=== PATIENT | male | born 1980 | race Hispanic/Latino ===

== ENCOUNTER → 2018-11-09 09:31 | Outpatient (CLI) | payer OTHER, SELFPAY ==
--- NOTE | 2018-11-09 09:40 | STEWCON_ITS ---
Reason For Study: Valvular Heart Disease Stress Results Protocol: Bon Protocol Maximum Predicted HR: 182 bpm Target HR: 155 bpm % Maximum Predicted HR: 89 % DurationHeart Rate Stage (mm:ss) (bpm) BP Comment Baseline 72 146/70No Chest Pain; 5 ML Diluted Definity Used Bon Protocol Stage I 3:00 111 138/72No Chest Pain Bon Protocol Stage II 3:00 130 156/72No Chest Pain; Mild Dyspnea Bon Protocol Stage III 3:00 162 150/68No Chest Pain; Moderate Dyspnea Recovery 99 130/68No Chest Pain Stress Duration: 9:00 mm:ss Maximum Stress HR: 162 bpm METS: 10 Baseline Echocardiogram Findings Stress Echo Wall motion Data Resting WM Intermediate WM Stress WM Resting Wall Motion Wall Motion Stress All segments Normal. All segments Hyperkinetic. Ejection Fraction 55 %. Ejection Fraction 70 %. Stress Results Heart rate response: Appropriate Blood pressure response to exercise: Resting hypertension-appropriate response Arrhythmias: None Functional capacity: Good Stopped secondary to: Dyspnea/leg discomfort. EKG Data The baseline ECG displays normal sinus rhythm. Peak exercise ECG: No Obvious ECG Changes. Symptoms with Stress No complaint of chest discomfort during exercise or recovery. MMode/2D Measurements & Calculations LVOT diam: 2.1 cm Ao root diam: 3.1 cm LVOT area: 3.4 cm2 Doppler Measurements & Calculations Ao V2 max: 362.9 cm/sec AI max kristy: 487.4 cm/sec LV V1 max: 109.2 cm/sec Ao max P.7 mmHg AI max P.1 mmHg LV V1 max P.8 mmHg Ao V2 mean: 264.1 cm/sec AI dec slope: 261.5 cm/sec2 LV V1 mean P.7 mmHg Ao mean P.8 mmHg AI P1/2t: 546.0 msec LV V1 mean: 79.2 cm/sec Ao V2 VTI: 85.2 cm LV V1 VTI: 26.6 cm JOEL(I,D): 1.1 cm2 JOEL(V,D): 1.0 cm2 SV(LVOT): 90.4 ml TR max kristy: 193.9 cm/sec TR max P.0 mmHg Interpretation Summary Negative (Adequate) Stress Echocardiogram Aortic valve: Moderate/borderline severe aortic valve stenosis Estimated RV systolic pressure: Approximately 18 mmHg Ordering Physician: Hari Bliss Referring Physician: William Hughes Performed By: Andreina Sotelo, RDCS, RVT
== END ==
PROVIDERS: Family Provider Family Medicine; PCP Family Medicine
DX: I38 Endocarditis, valve unspecified (principal)
CPT/HCPCS: 93017; 93350; Q9957; A4216; C8928

== ENCOUNTER 2021-01-10 20:58 | Inpatient (IN) | payer OTHER, SELFPAY ==
[2021-01-10] VITALS (9 sets, daily range): BP systolic 146–179; BP diastolic 76–102; PULSE 73–85; RESP 18–22; TEMP 35.9–36.6; O2SAT 95–97; BMI 48.4
--- NOTE | 2021-01-10 21:02 | EKG12_ITS ---
Test Reason : STROKE TEAM Blood Pressure : / mmHG Vent. Rate : 078 BPM Atrial Rate : 078 BPM P-R Int : 196 ms QRS Dur : 108 ms QT Int : 386 ms P-R-T Axes : 036 025 026 degrees QTc Int : 440 ms Normal sinus rhythm Normal ECG Confirmed by KRISTA LENZ, MARITZA ([id number]), supervising editor news reel RYLIE SCHMIDT ([id number]) on 01/14/2021 8:03:49 AM Referred By: MICHAEL Confirmed By:MARITZA VELASCO MD
--- NOTE | 2021-01-10 21:02 | CT_ITS ---
We are attempting to reach an attending provider to discuss findings. An addendum with communication details will be sent when the communication is complete. STUDY: CT BRAIN WITHOUT CONTRAST REASON FOR EXAM: Male, 40 years old. Neuro deficit, acute, stroke suspected TECHNIQUE: Transaxial CT imaging of the brain was performed without administration of intravenous contrast material. Individualized dose optimization techniques were used for this CT. COMPARISON: None. FINDINGS: Normal soft tissues. Normal calvarium. Normal size ventricles and extra-axial spaces for the patient''s age. Normal white matter tracts of the cerebral hemispheres. Normal basal ganglia and thalami. Normal brainstem. Normal cerebellum. There is no intracranial hemorrhage. There are no findings of an acute ischemic infarction. Normal visualized paranasal sinuses. ASPECTS 10 CT/STROKE Brain/Head without Cont IMPRESSION: There are no acute intracranial findings. Electronically Signed: Gavin Jackson MD at 21:17 EDT , Service support ,
--- NOTE | 2021-01-10 21:02 | RAD_ITS ---
STUDY: X-RAY CHEST REASON FOR EXAM: Male, 40 years old. Neuro deficit, acute, stroke suspected TECHNIQUE: Single AP portable view of the chest. COMPARISON: None. FINDINGS: The lungs are clear and expanded. There is no demonstrated pleural abnormality. Sternal cerclage wires are present from a prior sternotomy. Mild cardiomegaly. Normal mediastinum and carroll. Normal visualized pulmonary arteries. Normal visualized aortic arch and descending thoracic aorta. Normal visualized thoracic spine. Normal visualized ribs, clavicles, and shoulders. There is no demonstrated abnormality of the visualized soft tissue structures of the upper abdomen. RAD/Chest 1 View IMPRESSION: Normal x-ray examination of the chest. Electronically Signed: Matheus Bruce DO at 22:22 EDT Tel , Service support ,
[2021-01-10 21:18] LABS: Absolute Lymphocyte Count 2.85 X10^3/uL (0.83-4.51); Absolute Neutrophil Count 9.4 X10^3/uL (2.0-7.7); Basophil# 0.07 X10^3/uL; Basophil% 0.5 % (0-1); Eosinophil# 0.32 X10^3/uL; Eosinophils% 2.3 % (0-5); Hematocrit 48.5 % (40-54); Hemoglobin 16.3 g/dL (13.0-16.5); Lymphocyte # 2.85 X10^3/ul (0.83-4.51); Lymphocyte % 20.7 % (19-41); Mean Corp Hgb Conc 33.6 g/dL (32-36); Mean Corpuscular Hgb 29.1 pg (27.0-32.0); Mean Corpuscular Volume 86.5 fL (80-94); Mean Platelet Vol. 9.2 fl (6.2-12.0); Monocyte# 1.04 X10^3/uL; Monocyte% 7.6 % (0-10); NRBC Flagged by Analyzer 0 % (0-5); Neutrophil # 9.41 X10^3/uL (2.7-7.7); Neutrophil % 68.5 % (47-70); Platelet Count 191 K/mm3 (150-450); RBC Distribution Width CV 13.5 % (11.6-14.6); RBC Distribution Width SD 42.8 fl (35.1-43.9); Red Blood Count 5.61 M/mm3 (4.6-6.2); White Blood Count 13.8 K/mm3 (4.4-11.0)
--- NOTE | 2021-01-10 21:28 | EX.ED.DYSGE1 ---
HPI History of Present Illness Chief Complaint: Neuro S/Sx Informant: patient, spouse/S.O. and EMS Narrative Narrative: Patient presents via EMS as a prehospital stroke team. Patient was last seen normal at approximately 1900 hrs. He states that he was in his garage working on a car when he finished went up to the house sat outside began playing with his dog. He states that he began to feel strange and noticed that he did not really notice that it was his right arm that was moving. States that the right arm and right leg began to be insensate and weak. His found him and he was having difficulty speaking. EMS was called and he was transported here. Since arriving here he states that his arm and his leg are feeling better and his speech is getting better. He was taken directly from EMS cot to the CT scanner. Patient has had a history of having an aortic valve repair/replacement at [facility] in June. He does take aspirin. [facility] Medical History (Updated 01/10/21 @ 22:[address] Eagle Whittaker DO) Hyperlipidemia Hypertension Home Medications aspirin 81 mg PO DAILY 01/10/21 [History Last Taken Unknown] atorvastatin 80 mg PO DAILY 01/10/21 [History Last Taken Unknown] metoprolol succinate 100 mg PO DAILY 01/10/21 [History Last Taken Unknown] Allergy/AdvReac Type Severity Reaction Status Date / Time No Known Allergies Allergy Verified 01/10/21 21:37 Surgical History H/O aortic valve repair Social History (Updated 01/10/21 @ 21:[address] Eagle Whittaker DO) Smoking Status: Never smoker substance use type: does not use ROS ROS ED Constitutional Constitutional ED: Denies chills or weight loss Eyes Eyes: Denies change in vision or diplopia ENT ENT ED: Denies ear pain, rhinorrhea or sore throat Cardiovascular Cardiovascular: Denies chest pain, orthopnea, palpitations or racing heartbeat Respiratory/Chest Respiratory/Chest: Denies cough, dyspnea or orthopnea Gastrointestinal Gastrointestinal: Denies abdominal pain, diarrhea, nausea or vomiting Genitourinary Genitourinary ED: Denies dysuria, hematuria or urinary frequency Musculoskeletal Musculoskeletal: Denies arthralgias or myalgias Integumentary Denies abscess or rash Neurologic Neurologic: Reports paresthesias, weakness and other Details: Dysarthria ; Denies headache(s) Psychiatric Psychiatric: Denies anxiety, depression, suicidal ideation or suicidal thoughts Endocrine Endocrinology: Denies polydipsia, polyphagia or polyuria Allergic/Immunologic Allergic/Immunologic ED: Denies mouth swelling, tongue swelling or urticaria EXAM Physical Exam Const Vital Signs: 01/10/21 21:02 01/10/21 21:07 01/10/21 21:32 Temperature 97.8 F Temperature Source Temporal Pulse Rate 85 83 84 Respiratory Rate 22 H 18 18 Blood Pressure 175/93 H 175/93 H 170/81 H Blood Pressure Mean 120 120 110 Pulse Ox 96 97 95 Oxygen Delivery Method Room Air Room Air Room Air Positive well nourished and well developed General Appearance ED: well developed HEENT Reports normocephalic, head/scalp atraumatic and moist mucous membranes Eyes PERRL and EOMs intact bilaterally Neck no lymphadenopathy, supple and no JVD Resp normal respiratory effort and clear to auscultation bilaterally Cardio regular rate, regular rhythm and no murmurs GI normal to inspection, nondistended, normoactive bowel sounds and non-tender Palpation: soft Back/Spine no CVA tenderness and normal ROM Extremity normal to inspection General Extremety ED: Negative for edema General Extremity: Negative for edema Neuro oriented x3 and CN's II-XII intact bilaterally Neuro Narrative: Patient scores an NIH of 1 for decreased sensation of the right arm and right leg. Sensorium / Orientation: alert Motor Exam: strength 5/5 throughout Psych mental status grossly normal Mood & Affect: Negative for depressed or tearful Skin no rashes or lesions noted and no wounds MDM MDM MDM Narrative Medical decision making narrative: As discussed above prehospital stroke team was called. Taken directly to the CT scanner noncontrasted head CT was negative. Patient was interviewed by neurology with his NIH of 1 and improvement of symptoms he is not a TPA candidate. Basic blood work showed a white count 13.8. Troponin is 25. BMP is negative. Carboxyhemoglobin is 1.7. This was obtained as the patient was working in his garage. Later we learned that he was not using any devices that would admit CO. My interpretation of the chest x-ray is cardiomegaly but otherwise no acute process. CTA of the head and neck will be obtained as long as there is no obvious occlusion plan will be to admit the patient. Lab Data Attestation: I reviewed the patient's lab results. Labs: Laboratory Results - last 24 hr 01/10/21 01/10/21 01/10/21 21:03 21:03 21:03 WBC 13.8 H RBC 5.61 Hgb 16.3 Hct 48.5 MCV 86.5 MCH 29.1 MCHC 33.6 RDW Std Deviation 42.8 RDW Coeff of Arnel 13.5 Plt Count 191 MPV 9.2 Immature Gran % (Auto) 0.400 Neut % (Auto) 68.5 Lymph % (Auto) 20.7 Surry % (Auto) 7.6 Eos % (Auto) 2.3 Baso % (Auto) 0.5 Absolute Neuts (auto) 9.4 H Absolute Lymphs (auto) 2.85 Nucleated RBC % 0 PT 12.5 INR 1.0 APTT 32.0 Sodium 138 Potassium 3.5 Chloride 102 Carbon Dioxide 30.0 Anion Gap 6 BUN 17 Creatinine 0.95 Estim Creat Clear Calc 100.00 Est GFR (MDRD) Af Amer 113 Est GFR (MDRD) Non-Af 94 BUN/Creatinine Ratio 18.0 Glucose 113 H Calcium 9.5 Troponin I High Sens 25 ABG Data ABG results: ABG 01/10/21 21:58 VBG Carboxyhemoglobin 1.7 H Radiography Diagnostic Testing: Radiology Impression Brain CT 01/10/21 21:02 IMPRESSION: There are no acute intracranial findings. Electronically Signed: Gavin Jackson MD at 21:17 EDT , Service support , ADDENDUM: 01/10/212124 IMPRESSION: There are no acute intracranial findings. N.B. : The above Results were Read Back by Gavin Jackson MD to Dr. Eagle Whittaker MD, and understanding confirmed on 01/10/2021 21:18:16 (ET). Electronically Signed: Gavin Jackson MD at 21:17 EDT , Service support , Chest X-Ray 01/10/21 21:02 IMPRESSION: Normal x-ray examination of the chest. Electronically Signed: Matheus Bruce DO at 22:22 EDT Tel , Service support , Head/Neck CTA 01/10/21 22:18 IMPRESSION: Normal CTA Head and neck with contrast. N.B. : The above Results were Read Back by Matheus Bruce DO to Eagle Whittaker MD, and understanding confirmed on 01/10/2021 22:39:57 (ET). Electronically Signed: Matheus Bruce DO at 22:40 EDT Tel , Service support , EKG Initial EKG: Attestation: I personally reviewed and interpreted this EKG as follows: Comments: Sinus rhythm with a ventricular rate of 78 bpm Discharge Plan Dx/Rx/DC Orders Clinical Impression: Stroke Disposition Disposition: Acute Care [facility]
[2021-01-10 21:37] LABS: Anion Gap 6 (5-15); BUN 17 mg/dL (7-18); Calcium,Total 9.5 mg/dL (8.5-10.1); Chloride 102 mmol/L (98-107); Creatinine, Serum 0.95 mg/dL (0.70-1.30); EST Glomerular Filtration Rate 94 mL/min (>60); Est Glom Filt Rate - Afr Amer 113 mL/min (>60); Glucose 113 mg/dL (74-106); Potassium 3.5 mmol/L (3.5-5.1); Sodium Level 138 mmol/L (136-145); Troponin-I HS 25 pg/mL (3.0-78.0)
[2021-01-10 21:41] LABS: Prothrombin Time (Protime)PT. 12.5 SECONDS (11.7-14.9)
[2021-01-10] MEDS: 0.9% Normal Saline 1,000 ML 999 ML IV (21:44)
--- NOTE | 2021-01-10 22:18 | CT_ITS ---
STUDY: CTA HEAD AND NECK WITH CONTRAST REASON FOR EXAM: Male, 40 years old. STROKE RADIATION DOSAGE (If Supplied By Facility): CTDIvol = ( 20.78 ) mGy, DLP = ( 831.04 ) mGycm TECHNIQUE: CT angiography was performed with a multi-detector CT scanner. Data acquisition was obtained from the skull base through the vertex following intravenous administration of . MIP images were reconstructed from the axial data set. Post-processing of the angiographic images was performed, with multiplanar reformation and 3D reconstruction. Individualized dose optimization techniques were used for this CT. COMPARISON: No relevant priors. FINDINGS: Normal bilateral petrous carotid arteries. Normal right cavernous carotid artery with a normal supraclinoid bifurcation. Normal left cavernous carotid artery with a normal supraclinoid bifurcation. Normal right A1 segments of the anterior cerebral artery. Normal left A1 segments of the anterior cerebral artery. Normal intact anterior communicating artery (ACOM). Normal bilateral A2 segments of the anterior cerebral arteries. Normal right M1 and M2 segments of the middle cerebral arteries, with a normal M1 bifurcation. Normal left M1 and M2 segments of the middle cerebral arteries, with a normal M1 bifurcation. Normal right posterior communicating artery (PCOM). Normal left posterior communicating artery (PCOM). Normal bilateral vertebral arteries. Normal basilar artery with a normal basilar bifurcation. The visualized bilateral superior cerebellar (SCA) arteries are normal. Normal bilateral P1, P2 and visualized P3 segments of the posterior cerebral arteries. There is no demonstrated aneurysm of the pilot station of Ho. There is no demonstrated abnormality of the visualized brain. AORTIC ARCH: Normal visualized aortic arch. Normal origins of the brachiocephalic, left common carotid, and left subclavian arteries. RIGHT CAROTID ARTERIES: Normal right common carotid artery (CCA). Normal right common carotid bulb. Normal origin of the right internal carotid (ICA) artery without a hemodynamically significant stenosis. Normal visualized cervical portion of the right internal carotid artery. Normal origin of the right external carotid artery (ECA). LEFT CAROTID ARTERIES: Normal left common carotid artery (CCA). Normal left common carotid bulb. Normal origin of the left internal carotid (ICA) artery without a hemodynamically significant stenosis. Normal visualized cervical portion of the left internal carotid artery. Normal origin of the left external carotid artery (ECA). VERTEBRAL ARTERIES: Normal bilateral vertebral arteries. CT/STROKE CTA Head AND Neck W/Con IMPRESSION: Normal CTA Head and neck with contrast. N.B. : The above Results were Read Back by Matheus Brcue DO to Eagle Whittaker MD, and understanding confirmed on 01/10/2021 22:39:57 (ET). Electronically Signed: Matheus Bruce DO at 22:40 EDT Tel , Service support ,
[2021-01-10 22:27] LABS: Carboxyhemoglobin Frac (CO) 1.7 % (0.0-1.5)
[2021-01-10 23:00] LABS: Bacteria 0 SEEN /hpf (None Seen); Mucous, Urine 0 SEEN /hpf (<or=2+); Red Blood Cells-Urine 0 SEEN /hpf (0-5); White Blood Cells 0 SEEN /hpf (0-5)
[2021-01-10 23:03] LABS: Color, Urine Yellow (Yellow); Glucose, Dipstick Normal (Normal); Ketone-Dipstick Negative (Negative); Leukocyte Esterase-Dipstick Negative /ul (Negative); Nitrite-Dipstick Negative (Negative); Occult Blood-Urine Negative /ul (Negative); Protein-Dipstick 30 mg/dl (Negative); Specific Gravity, Urine 1.015 (1.002-1.030); Urine Bilirubin Dipstick Negative (Negative); Urine Clarity Sl. Cloudy (Clear); Urine Urobilinogen 1 mg/dl (Normal)
[2021-01-10 23:10] LABS: Squamous Epithelial Cells - UA 0-5 SEEN /hpf (0-5)
--- NOTE | 2021-01-10 23:21 | PCM.HP.STD ---
Documented by User: RASHMI Loo 01/10/21 23:32 HPI - General General Date of Admission: 01/10/21 Date of Service: 01/10/21 Chief Complaint: Numbness and Tingling HPI Narrative MELCHOR DONOVAN, is a 40 M who presents with complaints of right side numbness. Patient states that he was sitting at home during the ball with his dog in the backyard when he realized that he can no longer feel his right arm or leg. Patient was also noted to have slurred speech by his . Upon arrival to ER slurred speech had resolved however patient continues to have no sensation in her right arm or leg. Patient denies fever, chills, shortness of breath, chest pain, cough, nausea, vomiting. Patient reports that he recently underwent aortic valve replacement at the [facility] in June 2020 however patient does report that his valve is not mechanical and was made from his pericardium. [facility] Medical History Hyperlipidemia Hypertension Home Medications aspirin 81 mg PO DAILY 01/10/21 [History Last Taken Unknown] atorvastatin 80 mg PO DAILY 01/10/21 [History Last Taken Unknown] metoprolol succinate 100 mg PO DAILY 01/10/21 [History Last Taken Unknown] Allergy/AdvReac Type Severity Reaction Status Date / Time No Known Allergies Allergy Verified 01/10/21 21:37 Surgical History H/O aortic valve repair Social History Smoking Status: Never smoker substance use type: does not use ROS Constitutional Constitutional: Denies anorexia, chills, fatigue, malaise or weakness Cardiovascular Cardiovascular: Denies chest pain, edema or palpitations Respiratory/Chest Respiratory/Chest: Denies cough, shortness of breath at rest, shortness of breath with exertion or wheezing Gastrointestinal Gastrointestinal: Denies abdominal pain, constipation, diarrhea, nausea or vomiting Genitourinary Genitourinary: Denies dysuria Musculoskeletal Musculoskeletal: Denies back pain, extremity pain, joint pain or joint stiffness Integumentary Integumentary: Denies dry skin Neurologic Neurologic: Reports abnormal speech and sensory deficit; Denies abnormal gait Psychiatric Psychiatric: Denies anxiety or depression Endocrine Endocrinology: Denies change in body appearance Hematologic/Lymphatic Hematologic/Lymphatic: Denies anemia, easy bleeding or easy bruising Vital Signs Vital Signs Vital Signs: 01/10/21 21:02 01/10/21 21:07 01/10/21 21:32 Temperature 97.8 F Temperature Source Temporal Pulse Rate 85 83 84 Respiratory Rate 22 H 18 18 Blood Pressure 175/93 H 175/93 H 170/81 H Blood Pressure Mean 120 120 110 Pulse Ox 96 97 95 Oxygen Delivery Method Room Air Room Air Room Air 01/10/21 22:00 01/10/21 22:02 01/10/21 22:30 Temperature Temperature Source Pulse Rate 77 77 82 Respiratory Rate 19 H 19 H 18 Blood Pressure 176/85 H 176/85 H 179/102 H Blood Pressure Mean 115 115 127 Pulse Ox 96 96 96 Oxygen Delivery Method Room Air Room Air Room Air Weight Weight: 318 lb 12.8 oz Body Mass Index (BMI) 48.4 Physical Exam Const alert, oriented x3 and no apparent distress General Appearance: cooperative HEENT normocephalic and head/scalp atraumatic Eyes conjunctivae normal and no scleral icterus Neck supple General: trachea midline Resp normal respiratory effort, normal air movement and clear to auscultation bilaterally Cardio regular rate, regular rhythm, S1 normal heart sound, S2 normal heart sound and peripheral pulses 2+ throughout GI normal to inspection, nondistended, normoactive bowel sounds, soft to palpation and non-tender Extremity normal capillary refill and no clubbing, cyanosis or edema General Extremity: no tenderness to palpation of joints or extremities Skin General Skin Exam: no breakdown and turgor normal Lesions: no lesions Rashes: no rashes Neuro oriented x3, moves all extremities and no focal motor deficits Sensory Exam: double simultaneous stimulation for sensation abnormal Positive for right-sided extinction Psych thought process normal, cooperative and affect normal Appearance: appropriate Results Lab / Micro Data Result Diagrams: 01/11/21 03:14 01/11/21 03:14 Labs: Laboratory Results - last 24 hr 01/10/21 21:03: WBC 13.8 H, RBC 5.61, Hgb 16.3, Hct 48.5, MCV 86.5, MCH 29.1, MCHC 33.6, RDW Std Deviation 42.8, RDW Coeff of Arnel 13.5, Plt Count 191, MPV 9.2, Immature Gran % (Auto) 0.400, Neut % (Auto) 68.5, Lymph % (Auto) 20.7, [place] % (Auto) 7.6, Eos % (Auto) 2.3, Baso % (Auto) 0.5, Absolute Neuts (auto) 9.4 H, Absolute Lymphs (auto) 2.85, Nucleated RBC % 0 01/10/21 21:03: PT 12.5, INR 1.0, APTT 32.0 01/10/21 21:03: Sodium 138, Potassium 3.5, Chloride 102, Carbon Dioxide 30.0, Anion Gap 6, BUN 17, Creatinine 0.95, Estim Creat Clear Calc 100.00, Est GFR (MDRD) Af Amer 113, Est GFR (MDRD) Non-Af 94, BUN/Creatinine Ratio 18.0, Glucose 113 H, Calcium 9.5, Troponin I High Sens 25 01/10/21 22:54: Ur Drug Screen Comment 01/10/21 22:54: Urine Color Yellow, Urine Clarity Sl. Cloudy, Urine pH 5.0, Ur Specific [place] 1.015, Urine Protein 30 H, Urine Glucose (UA) Normal, Urine Ketones Negative, Urine Occult Blood Negative, Urine Nitrite Negative, Urine Bilirubin Negative, Urine Urobilinogen 1 H, Ur Leukocyte Esterase Negative, Urine RBC 0 SEEN, Urine WBC 0 SEEN, Ur Squamous Epith Cells 0-5 SEEN, Urine Bacteria 0 SEEN, Urine Mucus 0 SEEN ABG Data ABG results: ABG 01/10/21 21:58 VBG Carboxyhemoglobin 1.7 H Radiology Impression Brain CT 01/10/21 21:02 IMPRESSION: There are no acute intracranial findings. Electronically Signed: Gavin Jackson MD at 21:17 EDT , Service support , ADDENDUM: 01/10/212124 IMPRESSION: There are no acute intracranial findings. N.B. : The above Results were Read Back by Gavin Jackson MD to Dr. Eagle Whittaker MD, and understanding confirmed on 01/10/2021 21:18:16 (ET). Electronically Signed: Gavin Jackson MD at 21:17 EDT , Service support , Chest X-Ray 01/10/21 21:02 IMPRESSION: Normal x-ray examination of the chest. Electronically Signed: Matheus Bruce DO at 22:22 EDT Tel , Service support , Head/Neck CTA 01/10/21 22:18 IMPRESSION: Normal CTA Head and neck with contrast. N.B. : The above Results were Read Back by Matheus Bruce DO to Eagle Whittaker MD, and understanding confirmed on 01/10/2021 22:39:57 (ET). Electronically Signed: Matheus Bruce DO at 22:40 EDT Tel , Service support , ADDENDUM: 01/10/21 2247 IMPRESSION: Normal CTA Head and neck with contrast. N.B. : The above Results were Read Back by Matheus Bruce DO to Eagle Whittaker MD, and understanding confirmed on 01/10/2021 22:39:57 (ET). Electronically Signed: Matheus Bruce DO at 22:40 EDT Tel , Service support , Assessment & Plan Assessment/Plan (1) Stroke: PLAN: 1. Stroke rule out -Admit to PCU for cardiac and pulse ox monitoring -Brain CT and head/neck CTA negative for acute findings -NIH 1 for right-sided inattention -MRI brain scheduled for a.m. -We will obtain echo in a.m. -CBC, BMP, lipid profile for a.m. -PT, ST, OT to eval and treat -Vital signs and NIH every 4 hours per protocol -Oxygen per protocol -Cardiac diet ordered -Trend cardiac enzymes 2. Hypertension -We will allow permissive hypertension for first 24 hours due to #1 -Hold patient's home metoprolol -Vital signs every 4 hours per stroke protocol -As needed labetalol and hydralazine ordered 3. Hyperlipidemia -Continue atorvastatin -Lipid panel ordered for a.m. DVT prophylaxis-subcu Lovenox This patient was seen by RASHMI Loo under the supervision of Dr. Vincent. Documented by User: Dr. Arnel Vincent MD 01/11/21 04:26 HPI - General General Date of Admission: 01/10/21 [facility] Medical History Hyperlipidemia Hypertension Home Medications aspirin 81 mg PO DAILY 01/10/21 [History Last Taken Unknown] atorvastatin 80 mg PO DAILY 01/10/21 [History Last Taken Unknown] metoprolol succinate 100 mg PO DAILY 01/10/21 [History Last Taken Unknown] Allergy/AdvReac Type Severity Reaction Status Date / Time No Known Allergies Allergy Verified 01/10/21 21:37 Surgical History H/O aortic valve repair Social History Smoking Status: Never smoker substance use type: does not use Results Lab / Micro Data Result Diagrams: 01/11/21 03:14 01/11/21 03:14 Charges/Coding Addendum Addendum: Patient was seen and examined independently. 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 Reportedly while patient was playing with his dog he could not feel his right arm. Also he had decreased sensation in his left. Also he had a speech difficulty. Patient was evaluated by telestroke neurologist at the emergency department. NIH scale was assessed as 1. Patient was left from date of TPA. Physical exam: General: Well-nourished, well-developed. Head: Normocephalic, atraumatic, no tenderness Eyes: PERRLA, EOMI ENT, no trauma, moist mucous membranes, no rhinorrhea Neck: Nontender, full range of motion, no spinal tenderness, deformities, step-off CVS: Regular rate and rhythm. S1-S2 present. No murmur, gallop or rub. Respiratory : clear to auscultation bilaterally, chest wall nontender, no wheezing Abdomen: Soft, nontender, nondistended, normal bowel sounds, no masses : Deferred Back: Nontender, no CVA tenderness, no midline spinal tenderness, deformities, step-offs Extremities: Nontender full range of motion, no trauma Skin: Normal color, no trauma, abrasions Neuro: Alert, oriented, cranial nerves II through XII grossly intact. Sensation changes at the right upper extremity and right lower extremity. Patient with mild aphasia. Deep tendon reflexes 2+ out of 4 throughout. No dysmetria. Psychiatry: Normal mood. Normal affect. Not depressed. Not anxious. Serial NINDS NIH Scale ordered Impression of head CT by radiology: No acute intracranial findings. Actual head CT was independently interpreted and I agree with radiologist interpretation. Head and neck CTA unremarkable. Lipid profile and A1c ordered. Physical therapy, occupational therapy and speech therapy to work with patient. N.p.o. until bedside swallow eval. Daily aspirin continued. High intensity statin continued Permissive hypertension. Control blood pressure with labetalol and hydralazine for systolic blood pressure of more than 220 or diastolic blood pressure of more than 120. MRI of brain ordered Echocardiogram ordered. Hypertension Blood pressure is not within goal Hold home metoprolol for permissive hypertension. As needed hydralazine and labetalol as above. Visit Charges OBSV E&M: 71164 Initial observation care L2
[2021-01-11] VITALS (15 sets, daily range): BP systolic 132–160; BP diastolic 74–96; PULSE 69–86; RESP 18–20; TEMP 36.1–36.9; O2SAT 94–98; BMI 48.0
--- NOTE | 2021-01-11 00:06 | MRI_ITS ---
EXAM: MR HEAD WITHOUT INTRAVENOUS CONTRAST : 1980 CLINICAL INDICATION: stroke TECHNIQUE: Multiplanar and multisequence MR images of the brain were obtained without intravenous contrast. This report was created using [employer] report generation technology. COMPARISON: CT brain January 10, 2021 FINDINGS: BRAIN AND EXTRA-AXIAL SPACES: Restricted diffusion is noted along the central gyrus of the left parietal lobe consistent with acute ischemia. No intra- or extra-axial hemorrhage. No intracranial mass or mass effect. Posterior fossa structures are unremarkable. Ventricles are appropriate for age. No hydrocephalus. Basal cisterns are patent. SELLA: Unremarkable. Normal sella turcica, pituitary gland, infundibular stalk, optic chiasm and hypothalamus. AUDITORY SYSTEM: Unremarkable. The internal auditory canals are patent. BONES/JOINTS: Unremarkable. No discrete lytic or blastic abnormalities. SINUSES: Unremarkable as visualized. Clear. MASTOID AIR CELLS: Unremarkable as visualized. Clear. ORBITS: Unremarkable as visualized. Both globes, extraocular muscles, optic nerves and retrobulbar fat appear unremarkable. VASCULATURE: Unremarkable as visualized. Normal flow voids in the major intracranial circulation. MRI/Brain without Contrast IMPRESSION: Acute left parietal ischemic change. at 1325 Reported and signed by: Uriel Machado MD Electronically Signed: Urile Machado MD at 13:24 EDT Tel , Service support ,
--- NOTE | 2021-01-11 00:06 | ECHOCS_ITS ---
Reason For Study: TIA/CVA Procedure This was a 2D Doppler, Color Flow transthoracic echocardiogram. The study was technically difficult. The study was technically limited. Due to body habitus. Contrast injection was performed. Exam performed in department. Left Ventricle Normal left ventricle. The estimated ejection fraction is EF 55-60 %. Right Ventricle Normal right ventricle. Normal systolic function. Atria Normal left atrium. Normal right atrium. Mitral Valve The mitral valve is structurally normal. No prolapse or stenosis seen. Tricuspid Valve Normal tricuspid valve. Aortic Valve Normal function of AV Homograft OZAKI procedure. Pulmonic Valve The pulmonic valve is not well visualized. Great Vessels Normal aortic root. Pericardium/Pleural No pericardial effusion. Medication Diluted definity 2.0ml given slow IV push to enhance endocardial definition. MMode/2D Measurements & Calculations LVIDd: 5.7 cm IVSd: 1.1 cm Ao root diam: 3.1 cm LVIDs: 3.6 cm LVPWd: 1.4 cm FS: 36.9 % LAV(MOD-sp2): 39.9 ml LVAd ap4: 35.9 cm2 LVAd ap2: 33.6 cm2 LVLd ap4: 8.4 cm LVLd ap2: 9.2 cm EDV(MOD-sp4): 127.6 ml EDV(MOD-sp2): 104.2 ml EDV(sp4-el): 130.7 ml EDV(sp2-el): 103.3 ml LVAs ap4: 16.2 cm2 LVAs ap2: 15.9 cm2 LVLs ap4: 7.2 cm LVLs ap2: 8.2 cm ESV(MOD-sp4): 31.0 ml ESV(MOD-sp2): 26.7 ml ESV(sp4-el): 30.8 ml ESV(sp2-el): 26.1 ml EF(MOD-sp4): 75.7 % EF(MOD-sp2): 74.4 % EF(sp4-el): 76.5 % SV(MOD-sp4): 96.6 ml SV(MOD-sp2): 77.5 ml SV(sp4-el): 99.9 ml LA dimension(2D): 4.1 cm Time Measurements MV dec time: 0.18 sec Doppler Measurements & Calculations MV E max niall: 86.3 cm/sec Lat Peak E' Niall: 12.3 cm/sec Med Peak E' Niall: 5.0 cm/sec MV A max niall: 56.2 cm/sec E/E' lat: 7.0 E/E' med: 17.3 MV E/A: 1.5 Ao V2 max: 136.0 cm/sec LV V1 max: 96.8 cm/sec PA V2 max: 138.0 cm/sec Ao max P.4 mmHg LV V1 max P.7 mmHg ECHO/Echo Complete W/ Contrast Interpretation Summary The estimated ejection fraction is EF 55-60 %. Normal LV systolic function Normal function of AV Homograft OZAKI procedure. Ordering Physician: Lizeth Lombardi Referring Physician: David Powers Performed By: Andreina Sotelo, DEVIN, RVT
--- NOTE | 2021-01-11 00:12 | PCS.PANDOC ---
PANDEMIC DOCUMENTATION INITIATED: Date: 11/26/2020 Time: 190
[2021-01-11 00:23] LABS: Troponin-I HS 25 pg/mL (3.0-78.0)
[2021-01-11 03:33] LABS: Absolute Lymphocyte Count 2.44 X10^3/uL (0.83-4.51); Absolute Neutrophil Count 6.7 X10^3/uL (2.0-7.7); Basophil# 0.04 X10^3/uL; Basophil% 0.4 % (0-1); Eosinophil# 0.28 X10^3/uL; Eosinophils% 2.7 % (0-5); Hemoglobin 14.2 g/dL (13.0-16.5); Lymphocyte # 2.44 X10^3/ul (0.83-4.51); Lymphocyte % 23.6 % (19-41); Mean Corp Hgb Conc 32.3 g/dL (32-36); Mean Corpuscular Hgb 28.7 pg (27.0-32.0); Mean Corpuscular Volume 89.1 fL (80-94); Mean Platelet Vol. 9.4 fl (6.2-12.0); Monocyte# 0.89 X10^3/uL; Monocyte% 8.6 % (0-10); NRBC Flagged by Analyzer 0 % (0-5); Neutrophil # 6.66 X10^3/uL (2.7-7.7); Neutrophil % 64.3 % (47-70); Platelet Count 173 K/mm3 (150-450); RBC Distribution Width CV 13.6 % (11.6-14.6); RBC Distribution Width SD 44.3 fl (35.1-43.9); Red Blood Count 4.94 M/mm3 (4.6-6.2); White Blood Count 10.4 K/mm3 (4.4-11.0)
[2021-01-11 03:49] LABS: Troponin-I HS 22 pg/mL (3.0-78.0)
[2021-01-11 03:58] LABS: Anion Gap 8 (5-15); BUN 15 mg/dL (7-18); BUN/Creat Ratio 21.1 RATIO (10-20); Calcium,Total 8.6 mg/dL (8.5-10.1); Chloride 105 mmol/L (98-107); Cholesterol 133 mg/dL (200); Creatinine, Serum 0.71 mg/dL (0.70-1.30); EST Glomerular Filtration Rate 130 mL/min (>60); Est Glom Filt Rate - Afr Amer 157 mL/min (>60); Glucose 148 mg/dL (74-106); High Density Lipoprotein 28 mg/dL; Potassium 3.6 mmol/L (3.5-5.1); Sodium Level 139 mmol/L (136-145); Triglycerides 173 mg/dL; Very Low Density Lipoprotein 35 mg/dL (5-40)
[2021-01-11 05:33] LABS: Amphetamine Urine VISTA NEGATIVE (<1000 ng/mL); Barbiturate Urine VISTA NEGATIVE (< 200 ng/mL); Benzodiazepine Urine VISTA NEGATIVE (< 200 ng/mL); Cocaine Urine VISTA NEGATIVE (< 300 ng/mL); Ecstacy Urine VISTA NEGATIVE (< 500 ng/mL); Methadone Urine VISTA NEGATIVE (< 300 ng/mL); PCP Urine VISTA NEGATIVE (< 25 ng/mL); THC Urine VISTA NEGATIVE (< 50 ng/mL)
[2021-01-11 05:34] LABS: Vista UDS pH Range 5
[2021-01-11 07:41] LABS: Hemoglobin A1c 5.8 % (3.8-5.6)
[2021-01-11] MEDS: Aspirin E.C. 81 MG Tablet PO (10:45)
[2021-01-11] MEDS: Enoxaparin 40 MG/0.4 ML Syringe SC ×2 (10:46→21:51)
--- NOTE | 2021-01-11 11:47 | CASEMGMT ---
SW completed a PHQ9 with patient as he may have had a Stroke. He scored a 0 which indicates no depression. He declined any need for resources. Michelle TSE
--- NOTE | 2021-01-11 13:30 | TELEMED_ITS ---
SOC Telemed has confirmed receipt of a request for visit. This document confirms receipt of the order initiating the consult. To find the results of the consultation, please view the patient's reports for the scanned Telemed Consult.
--- NOTE | 2021-01-11 16:21 | PCM.PN.HOSP ---
Documented by User: Murphy SAUCEDO 01/11/21 16:29 Subjective Subjective Patient is a 40-year-old male comfortably resting in bed, alert and oriented x3. Patient still reports ongoing right-sided numbness and tingling. Patient denies any slurred speech, however does report having difficulty finding his words. Denies any other focal neurological deficits. Objective Data Objective Data Vital Signs: Vital Signs Temp Pulse Resp BP Pulse Ox 98.4 F 78 18 140/86 H 94 01/11/21 14:30 01/11/21 15:48 01/11/21 14:30 01/11/21 14:30 01/11/21 14:30 Oxygen Delivery Method Room Air Weight: 316 lb 2.286 oz Body Mass Index (BMI) 48.0 Intake & Output: Intake and Output for Last 24 Hours 01/09/21 01/10/21 01/11/21 23:59 23:59 23:59 Intake Total 1000 / 1000 480 / 480 Balance 1000 / 1000 480 / 480 Lab / Micro Data Result Diagrams: 01/11/21 03:14 01/12/21 06:15 Labs: Laboratory Results - last 24 hr 01/10/21 21:03: WBC 13.8 H, RBC 5.61, Hgb 16.3, Hct 48.5, MCV 86.5, MCH 29.1, MCHC 33.6, RDW Std Deviation 42.8, RDW Coeff of Arnel 13.5, Plt Count 191, MPV 9.2, Immature Gran % (Auto) 0.400, Neut % (Auto) 68.5, Lymph % (Auto) 20.7, [place] % (Auto) 7.6, Eos % (Auto) 2.3, Baso % (Auto) 0.5, Absolute Neuts (auto) 9.4 H, Absolute Lymphs (auto) 2.85, Nucleated RBC % 0 01/10/21 21:03: PT 12.5, INR 1.0, APTT 32.0 01/10/21 21:03: Sodium 138, Potassium 3.5, Chloride 102, Carbon Dioxide 30.0, Anion Gap 6, BUN 17, Creatinine 0.95, Estim Creat Clear Calc 100.00, Est GFR (MDRD) Af Amer 113, Est GFR (MDRD) Non-Af 94, BUN/Creatinine Ratio 18.0, Glucose 113 H, Calcium 9.5, Troponin I High Sens 25 01/10/21 22:54: Urine Opiates Screen NEGATIVE, Urine Methadone Screen NEGATIVE, Ur Barbiturates Screen NEGATIVE, Ur Phencyclidine Scrn NEGATIVE, Ur Amphetamines Screen NEGATIVE, U Methamphetamin-MDMA NEGATIVE, U Benzodiazepines Scrn NEGATIVE, Urine Cocaine Screen NEGATIVE, U Cannabinoids Screen NEGATIVE, Ur Drug Screen Comment 01/10/21 22:54: Urine Color Yellow, Urine Clarity Sl. Cloudy, Urine pH 5.0, Ur Specific [place] 1.015, Urine Protein 30 H, Urine Glucose (UA) Normal, Urine Ketones Negative, Urine Occult Blood Negative, Urine Nitrite Negative, Urine Bilirubin Negative, Urine Urobilinogen 1 H, Ur Leukocyte Esterase Negative, Urine RBC 0 SEEN, Urine WBC 0 SEEN, Ur Squamous Epith Cells 0-5 SEEN, Urine Bacteria 0 SEEN, Urine Mucus 0 SEEN 01/10/21 23:45: Troponin I High Sens 25 01/11/21 03:14: WBC 10.4, RBC 4.94, Hgb 14.2, Hct 44.0, MCV 89.1, MCH 28.7, MCHC 32.3, RDW Std Deviation 44.3 H, RDW Coeff of Arnel 13.6, Plt Count 173, MPV 9.4, Immature Gran % (Auto) 0.400, Neut % (Auto) 64.3, Lymph % (Auto) 23.6, [place] % (Auto) 8.6, Eos % (Auto) 2.7, Baso % (Auto) 0.4, Absolute Neuts (auto) 6.7, Absolute Lymphs (auto) 2.44, Nucleated RBC % 0 01/11/21 03:14: Sodium 139, Potassium 3.6, Chloride 105, Carbon Dioxide 26.0, Anion Gap 8, BUN 15, Creatinine 0.71, Estim Creat Clear Calc 133.80, Est GFR (MDRD) Af Amer 157, Est GFR (MDRD) Non-Af 130, BUN/Creatinine Ratio 21.1 H, Glucose 148 H, Calcium 8.6, Triglycerides 173, Cholesterol 133, LDL Cholesterol 70, VLDL Cholesterol 35, HDL Cholesterol 28 L 01/11/21 03:14: Troponin I High Sens 01/11/21 03:14: Hemoglobin A1c 5.8 H ABG Data ABG results: ABG 01/10/21 21:58 VBG Carboxyhemoglobin 1.7 H Radiography Diagnostic Testing: Radiology Impression Brain CT 01/10/21 21:02 IMPRESSION: There are no acute intracranial findings. Electronically Signed: Gavin Jackson MD at 21:17 EDT , Service support , ADDENDUM: 01/10/21 2125 IMPRESSION: There are no acute intracranial findings. N.B. : The above Results were Read Back by Gavin Jackson MD to Dr. Eagle Whittaker MD, and understanding confirmed on 01/10/2021 21:18:16 (ET). Electronically Signed: Gavin Jakcson MD at 21:17 EDT , Service support , Chest X-Ray 01/10/21 21:02 IMPRESSION: Normal x-ray examination of the chest. Electronically Signed: Matheus Bruce DO at 22:22 EDT Tel , Service support , Head/Neck CTA 01/10/21 22:18 IMPRESSION: Normal CTA Head and neck with contrast. N.B. : The above Results were Read Back by Matheus Bruce DO to Eagle Whittaker MD, and understanding confirmed on 01/10/2021 22:39:57 (ET). Electronically Signed: Matheus Bruce DO at 22:40 EDT Tel , Service support , ADDENDUM: 01/10/21 2247 IMPRESSION: Normal CTA Head and neck with contrast. N.B. : The above Results were Read Back by Matheus Bruce DO to Eagle Whittaker MD, and understanding confirmed on 01/10/2021 22:39:57 (ET). Electronically Signed: Matheus Bruce DO at 22:40 EDT Tel , Service support , Brain MRI 01/11/21 00:06 IMPRESSION: Acute left parietal ischemic change. at 1325 Reported and signed by: Uriel Machado MD Electronically Signed: Uriel Machado MD at 13:24 EDT Tel , Service support , Echocardiogram 01/11/21 00:06 Interpretation Summary The estimated ejection fraction is EF 55-60 %. Normal LV systolic function Normal function of AV Homograft OZAKI procedure. Ordering Physician: Lizeth Lombardi Referring Physician: David Powers Performed By: Andreina Sotelo, RDCS, RVT Physical Exam Const alert, oriented x3 and no apparent distress HEENT head/scalp atraumatic and moist oral mucous membranes Head and Scalp: normocephalic Eyes PERRL, EOMs intact bilaterally and conjunctivae normal Neck no lymphadenopathy, supple and no JVD Resp normal respiratory effort, no retractions, no use of accessory muscles and clear to auscultation bilaterally Cardio regular rate, regular rhythm, no murmurs and no JVD GI normal to inspection, nondistended, normoactive bowel sounds, soft to palpation and non-tender Extremity normal to inspection, full ROM and no clubbing, cyanosis or edema Skin no rashes or lesions noted, no wounds, skin turgor normal and no jaundice Neuro Neuro Narrative: Patient still reports right sided numbness/tingling, more prominent in the upper extremity. Patient denies any slurred speech, however does report having difficulty finding his words. Patient does not display any other focal neurological deficits. Psych affect normal Assessment & Plan Assessment/Plan (1) Stroke: PLAN: Day 1 Discharge planning: Patient to be discharged home when medically ready, anticipate discharge on 01/12/2021. 1) acute CVA Patient still complains of ongoing right-sided numbness/tingling. Patient denies any slurred speech, however reports difficulty finding his words. Does not display any other focal neurological deficits. brain MRI demonstrates acute left parietal ischemic change. SOC teleneurology consult ordered/pending. Echocardiogram demonstrated an EF of 60% and normal LV systolic function plan. PT/OT eval obtained, no additional therapy needs identified. Plan; remain admitted overnight for monitoring, aspirin, statin and Lovenox, continue permissive hypertension, as needed labetalol and hydralazine ordered. 2) HTN Allow for permissive hypertension, hold home metoprolol. As needed hydralazine and labetalol as above. 3) hyperlipidemia Lipid panel reveals a low HDL cholesterol, otherwise within normal limits. Continue atorvastatin. DVT prophylaxis - Lovenox Patient seen by Murphy Denney PA-C, under the supervision of Dr. Last. Documented by User: Dr. Donnie Last MD 01/12/21 12:33 Objective Data Lab / Micro Data Result Diagrams: 01/11/21 03:14 01/12/21 06:15 Charges/Coding Addendum Addendum: Dr. Last: I personally reviewed the chart and examined the patient, and agree with the above findings. 40-year-old male presents to the hospital with a sudden onset of right arm numbness. Also per his there were some confusion as she forgot month and their anniversary date. All that has improved however he continues to have severely diminished sensation to the point where he cannot feel blood work being drawn on his right extremity. This extends all the way up from his hand to his shoulder. Unfortunately he was not given TPA as at the time it appeared that his symptoms were improving and he did arrive to the ER within an hour of onset of symptoms. MRI is currently pending, if positive will consult SOC. Visit Charges Inpatient E&M: 37516 Subs Hosp L2
--- NOTE | 2021-01-11 16:21 | CASEMGMT ---
Per therapy, no further therapy recommended for pt at this time. SStaten RN CM
[2021-01-11] MEDS: Atorvastatin Calcium 80 MG Tablet PO (21:51)
[2021-01-12] VITALS (7 sets, daily range): BP systolic 135–169; BP diastolic 84–106; PULSE 69–88; RESP 16–18; TEMP 36.7–36.9; O2SAT 96–98
[2021-01-12 07:12] LABS: Anion Gap 7 (5-15); BUN 10 mg/dL (7-18); BUN/Creat Ratio 14.5 RATIO (10-20); Calcium,Total 8.7 mg/dL (8.5-10.1); Chloride 106 mmol/L (98-107); Creatinine, Serum 0.69 mg/dL (0.70-1.30); EST Glomerular Filtration Rate 135 mL/min (>60); Est Glom Filt Rate - Afr Amer 163 mL/min (>60); Estimated Creatinine Clearance 137.68 ml/min; Glucose 112 mg/dL (74-106); Potassium 4.5 mmol/L (3.5-5.1); Sodium Level 139 mmol/L (136-145)
[2021-01-12] MEDS: Aspirin E.C. 81 MG Tablet PO (09:14)
[2021-01-12] MEDS: Enoxaparin 40 MG/0.4 ML Syringe SC (09:15)
--- NOTE | 2021-01-12 10:33 | PCM.DC ---
Discharge Instructions Diet Discharge Diet: No restrictions Activity Discharge Activity: Return to Normal Activity Weight Bearing Status: Weight bearing as tolerated Dressing / Incision Call your doctor if you observe: Fever of 101 or Higher, Numbness or Tingling, Shortness of breath, Dizziness, Chest pain, Increased palpitations (irregular heartbeat) and Calf discomfort Follow Up Care Please Follow Up With: Primary care provider When: Within the next two weeks. Test Results: Test results from this visit will be discussed in further detail at your follow-up appointment, if applicable. Discharge Plan Admission Admit Date/Time: 01/11/21 13:25 Primary Reason for Your Visit: Slurred speech & RUE weakness Attending Provider: Donnie Last Primary Care Provider: David Powers Discharge Orders/Prescriptions Prescriptions: New clopidogrel [Plavix] 75 mg tablet 75 mg PO DAILY Qty: 21 RF: 0 Continued atorvastatin 80 mg tablet 80 mg PO DAILY RF: 0 aspirin 81 mg tablet,delayed release (DR/EC) 81 mg PO DAILY RF: 0 metoprolol succinate 100 mg Capsule,Sprinkle,Er 24hr 100 mg PO DAILY RF: 0 Referrals / Follow Up: David Powers MD [Primary Care Provider] - Within 2 Weeks Felipe Laboy MD [NON-STAFF] - Within 2 Weeks Disposition Disposition (needs filled in before D/C Order can be placed): Home, Self Care
--- NOTE | 2021-01-12 11:10 | CASEMGMT ---
RN CM COMMODITIES MANAGER CM to room to meet with patient for initial transition planning/care coordination assessment. RN ISAC introduced self and role at [facility]. Pt voices understanding and consents to assessment at this time. Pt sitting up in chair in room in no distress at this time. , Shweta, @ bedside. Pt is A/O at this time and answers all questions appropriately. Care providers, pharmacy, and demographics verified/updated at this time. PCP: Dr Powers Specialists: Dr Cruz--manager administrative @ [facility] main [place] Preferred Pharmacy: [facility] retail Insurance: MMO Prescription Benefit: yes Living Will/HPOA: Does not have LW. Has HPOA, who is his Shweta LNOK: , Shweta Living Arrangements: Lives w/ and 4 sons in 2-story home w/ 2-3 steps to enter. Has bedroom and bath on 2nd floor. Bathroom also on main floor. Independent. Transportation: Pt states drives self and states no transportation concerns at this time. also drives. DME: Denies using any DME and denies needs. HHC/SNF: No hx of either. Denies need for HHC. Discussed OP ST w/pt and . Pt states he may be interested in ST @ [facility], but he is not sure yet. Script obtained from MARIE Bermudez, for ST @ [facility] and given to pt/ at this time. Pt wishes to return home and states has no concerns with going home at time of discharge. CM to follow for any further discharge planning/needs. Pt voices no further concerns/needs at this time. Advised pt to ask for CM if any further questions/concerns/needs arise. Voices understanding. PLAN: Home w/spousal support and discharge plans in place. Pt considering OP ST and was given script. Radhika LINARES RN, CM
--- NOTE | 2021-01-12 13:13 | DS.PCM_ITS ---
Documented by User: Murphy SAUCEDO 01/12/21 13:19 Providers Date of Admission: 01/11/21 Primary Care Physician: Dr. David Powers MD Reason For Visit: NUMBNESS AND TINGLING Diagnosis Discharge Diagnosis (1) Stroke: Status: Acute Code(s): I63.9 - Cerebral infarction, unspecified Medications at Discharge Home Medications aspirin 81 mg PO DAILY 01/10/21 atorvastatin 80 mg PO DAILY 01/10/21 metoprolol succinate 100 mg PO DAILY 01/10/21 clopidogrel [Plavix] 75 mg PO DAILY #21 tab 01/12/21 Hospital Course Procedures 2-D Echocardiogram Summary of Care Provided Minutes Spent on Discharge: 35 Hospital Course: Disposition: Patient to be discharged home, no physical therapy or occupational therapy needs identified during evaluation. Ongoing speech therapy set up by case management. 1) acute CVA Patient still complains of ongoing right-sided numbness/tingling. Patient denies any slurred speech, however reports difficulty finding his words. Does not display any other focal neurological deficits. Brain MRI demonstrates acute left parietal ischemic change. SOC consult obtained and recommendations were followed. Echocardiogram demonstrated an EF of 60% and normal LV systolic function plan. PT/OT eval obtained, no additional therapy needs identified. Plan; discharge home, continue taking aspirin and statin, initiate Plavix 75 mg p.o. daily for 21 days, follow-up with Dr. Laboy to establish outpatient neurology care, speech therapy set up as above. 2) HTN Stable, continue metoprolol. 3) hyperlipidemia Lipid panel reveals a low HDL cholesterol, otherwise within normal limits. Continue atorvastatin. Patient seen by Murphy Denney PA-C, under the supervision of Dr. Last. Physical Exam Const alert, oriented x3 and no apparent distress HEENT normocephalic, head/scalp atraumatic and hearing grossly normal bilaterally Eyes PERRL, EOMs intact bilaterally and conjunctivae normal Neck no lymphadenopathy, supple and no JVD Resp normal respiratory effort, no retractions, no use of accessory muscles and clear to auscultation bilaterally Cardio regular rate, regular rhythm, no murmurs and no JVD GI normal to inspection, nondistended, normoactive bowel sounds, soft to palpation and non-tender Extremity normal to inspection, full ROM and no clubbing, cyanosis or edema Skin no rashes or lesions noted, no wounds and skin turgor normal Neuro oriented x3 Neuro Narrative: Patient still endorses some right sided upper and lower extremity numbness. Denies any weakness. Denies any slurred speech, does report being slow to find his words. Does not demonstrate any other focal neurological deficits. Sensorium / Orientation: awake and alert Psych affect normal Weight / BMI Weight Weight: 316 lb 2.286 oz Body Mass Index (BMI) 48.0 ABG / Lab / Microbiology Data Result Diagrams: 01/11/21 03:14 01/12/21 06:15 Laboratory: Laboratory Results - last 24 hr 01/12/21 06:15: Sodium 139, Potassium 4.5, Chloride 106, Carbon Dioxide 26.0, Anion Gap 7, BUN 10, Creatinine 0.69 L, Estim Creat Clear Calc 137.68, Est GFR (MDRD) Af Amer 163, Est GFR (MDRD) Non-Af 135, BUN/Creatinine Ratio 14.5, Glucose 112 H, Calcium 8.7 Radiography Diagnostic Testing: Radiology Impression Brain MRI 01/11/21 00:06 IMPRESSION: Acute left parietal ischemic change. at 1325 Reported and signed by: Uriel Machado MD Electronically Signed: Uriel Machado MD at 13:24 EDT Tel , Service support , Echocardiogram 01/11/21 00:06 Interpretation Summary The estimated ejection fraction is EF 55-60 %. Normal LV systolic function Normal function of AV Homograft OZAKI procedure. Ordering Physician: Lizeth Lombardi Referring Physician: David Powers Performed By: Andreina Sotelo, DEVIN, RVT D/C Instructions Discharge Diet: No restrictions Weight Bearing Status: Weight bearing as tolerated Call your doctor if you observe: Fever of 101 or Higher, Numbness or Tingling, Shortness of breath, Dizziness, Chest pain, Increased palpitations (irregular heartbeat) and Calf discomfort Please Follow Up With: Primary care provider When: Within the next two weeks. Meaningful Use Info Meaningful Use Diagnoses (Choose all that apply): Ischemic CVA CVA Therapy Assessed for PT,OT and/or ST?: Yes Ischemic Stroke Antithrombotic order at d/c?: Yes Dx of Atrial fib/flutter?: No Statins at discharge?: Yes Primary Dx Acute Ischemic CVA?: Yes IV tPA ordered during stay?: No Reason IV t-PA not ordered: Treatment not Indicated Discharge Plan Admission Admit Date/Time: 01/11/21 13:25 Primary Reason for Your Visit: Slurred speech & RUE weakness Attending Provider: Donnie Last Primary Care Provider: David Powers Instructions Additional Instructions / Restrictions: Patient Problems: Altered Health Status related to Hospitalization Patient Goals: *Optimal Level of Health *Keep Appointments *Medication Compliance *Remain Safe Discharge Orders/Prescriptions Prescriptions: New clopidogrel [Plavix] 75 mg tablet 75 mg PO DAILY Qty: 21 RF: 0 Continued atorvastatin 80 mg tablet 80 mg PO DAILY RF: 0 aspirin 81 mg tablet,delayed release (DR/EC) 81 mg PO DAILY RF: 0 metoprolol succinate 100 mg Capsule,Sprinkle,Er 24hr 100 mg PO DAILY RF: 0 Referrals / Follow Up: David Powers MD [Primary Care Provider] - Within 2 Weeks Felipe Laboy MD [NON-STAFF] - Within 2 Weeks Disposition Disposition (needs filled in before D/C Order can be placed): Home, Self Care Documented by User: Dr. Donnie Last MD 01/12/21 17:07 Providers Date of Admission: 01/11/21 Reason For Visit: NUMBNESS AND TINGLING Medications at Discharge Home Medications aspirin 81 mg PO DAILY 01/10/21 atorvastatin 80 mg PO DAILY 01/10/21 metoprolol succinate 100 mg PO DAILY 01/10/21 clopidogrel [Plavix] 75 mg PO DAILY #21 tab 01/12/21 ABG / Lab / Microbiology Data Result Diagrams: 01/11/21 03:14 01/12/21 06:15 Discharge Plan Admission Admit Date/Time: 01/11/21 13:25 Primary Reason for Your Visit: Slurred speech & RUE weakness Attending Provider: Donnie Last Primary Care Provider: David Powers Instructions Additional Instructions / Restrictions: Patient Problems: Altered Health Status related to Hospitalization Patient Goals: *Optimal Level of Health *Keep Appointments *Medication Compliance *Remain Safe Discharge Orders/Prescriptions Prescriptions: New clopidogrel [Plavix] 75 mg tablet 75 mg PO DAILY Qty: 21 RF: 0 Continued atorvastatin 80 mg tablet 80 mg PO DAILY RF: 0 aspirin 81 mg tablet,delayed release (DR/EC) 81 mg PO DAILY RF: 0 metoprolol succinate 100 mg Capsule,Sprinkle,Er 24hr 100 mg PO DAILY RF: 0 Referrals / Follow Up: David Powers MD [Primary Care Provider] - Within 2 Weeks Felipe Laboy MD [NON-STAFF] - Within 2 Weeks Disposition Disposition (needs filled in before D/C Order can be placed): Home, Self Care Charges/Coding Addendum Addendum: Dr. Last: I personally reviewed the chart and examined the patient, and agree with the above findings. 40-year-old male presents to the hospital with a sudden onset of right arm numbness. Also per his there were some confusion as she forgot month and their anniversary date. All that has improved however he continues to have severely diminished sensation to the point where he cannot feel blood work being drawn on his right extremity. This extends all the way up from his hand to his shoulder. Unfortunately he was not given TPA as at the time it appeared that his symptoms were improving and he did arrive to the ER within an hour of onset of symptoms. MRI is currently pending, if positive will consult SOC. 01/12/2021: Doing well, continues to have numbness in his right upper extremity. Has very little sensation however strength is intact. He did have his MRI yesterday which demonstrated acute left parietal ischemic changes consistent with stroke. SOC was consulted and they recommended aspirin and Plavix as well as a statin. His echo was unremarkable. He will need to follow-up with his PCP and a neurologist as an outpatient for further monitoring and management. I discussed lifestyle modifications especially given his morbid obesity with a BMI of 48.1, he expressed understanding of the need to lose weight. I discussed with him the plan for discharge today and he expressed understanding of the risk of benefits going home and would like to go home. Visit Charges Inpatient E&M: 58203 Disch Hosp
== END 2021-01-12 11:25 | disposition home or self-care (01) | DRG 65 ==
LOC: ED 22:11 → PCU 01-11 04:18
PROVIDERS: Nurse Practitioner Family; Physician Assistant; Admitting Provider Hospitalist; Emergency Provider Emergency Medicine; PCP Family Medicine; Visit Provider Family Medicine
DX: I63.9 Cerebral infarction, unspecified (principal); Z68.42 Body mass index [BMI] 45.0-49.9, adult; E66.01 Morbid (severe) obesity due to excess calories; I10 Essential (primary) hypertension; E78.5 Hyperlipidemia, unspecified; Z95.2 Presence of prosthetic heart valve; Z79.02 Long term (current) use of antithrombotics/antiplatelets; Z79.82 Long term (current) use of aspirin
CPT/HCPCS: 36415; 70450; 70496; 70498; 70551; 71045; 80048; 80061; 80307; 81001; 82375; 83036; 84484; 85025; 85610; 85730; 92507; 92523; 92610; 93005; 93306; 94762; 97162; 97802; 99285; J7030; Q9957; Q9967; A4216; C8929; J3490